=== PATIENT | female | born 1950 | race Hispanic/Latino ===

== ENCOUNTER 2024-05-04 16:36 | Emergency (ER) | payer SELFPAY ==
[2024-05-04] MEDS ORDERED: Acetaminophen 500 MG TAB ONE (17:11)
[2024-05-04 17:41] LABS: Influenza A by NAA Not Detected (NotDetected); Influenza B by NAA Not Detected (NotDetected); SARS-CoV-2 NAA Rapid Test DETECTED (NotDetected)
== END 2024-05-04 19:47 | disposition home or self-care (01) ==
LOC: MADERS 16:36
DX: U07.1 COVID-19 (principal); F17.210 Nicotine dependence, cigarettes, uncomplicated
CPT/HCPCS: 99284